=== PATIENT | female | born 1955 | race Caucasian/White ===

== ENCOUNTER 2020-07-17 18:32 | Emergency (ER) | payer OTHER ==
[~2020-07-17] VITALS: Ht 177.8 cm; Wt 108.9 kg
[2020-07-17 18:35] VITALS: BP 179/81
--- NOTE | 2020-07-17 19:04 | NUR ---
PT AMBULATED TO BED 09.
[2020-07-17] MEDS ORDERED: LIDOCAINE/EPI 1% 1:100000 20 ML VIAL INJ ONE (19:05)
--- NOTE | 2020-07-17 19:10 | NUR ---
65 YR OLD FEMALE PRESENTED TO THE ER WITH CC OF ABCESS TO RIGHT INNER THIGH. PT IS AOX4. PT STATES ABCESS STARTED 2 DAYS AGO WITH SLIGHT PINK/YELLOW DRAINAGE. PT STATES 8/10 SHARP-NONRADIATING PAIN TO ABCESS. PT DENIES OTHER MEDICAL COMPLAINTS. BED LOCKED IN LOWEST POSITION WITH 1 SIDE RAIL UP. HISTORY- DM ALLERGIES- NONE
[2020-07-17] MEDS ORDERED: LIDOCAINE 2% 1000 MG/50 ML VIAL INJ ONE ×2 (19:25→19:30)
--- NOTE | 2020-07-17 19:30 | NUR ---
ERMD AT BEDSIDE FOR MEDICAL EVALUATION.
--- NOTE | 2020-07-17 19:42 | NUR ---
GYNECOLOGICAL ASSISTANT AT BEDSIDE.
[2020-07-17 19:53] LABS: BASOPHILS # (AUTO) 0.1 K/uL (0.00-0.22); BASOPHILS % (AUTO) 0.8 % (0.0-2.0); EOSINOPHILS # (AUTO) 0.2 K/uL (0-0.4); EOSINOPHILS % (AUTO) 2.4 % (0.0-4.0); HEMATOCRIT 38.6 % (36-48); HEMOGLOBIN 13.2 g/dL (12.0-16.0); LYMPHOCYTES # (AUTO) 1.4 K/uL (2.5-16.5); LYMPHOCYTES % (AUTO) 16.3 % (20.5-51.1); MEAN CORPUSCULAR HEMOGLOBIN 29 pg (27-31); MEAN CORPUSCULAR HGB CONC 34 g/dL (33-37); MEAN CORPUSCULAR VOLUME 83.6 fL (80-94); MONOCYTES # (AUTO) 0.8 K/uL (0.8-1.0); MONOCYTES % (AUTO) 9.4 % (1.7-9.3); NEUTROPHILS # (AUTO) 6.2 K/uL (1.8-7.7); NEUTROPHILS % (AUTO) 71.1 % (42.2-75.2); PLATELET COUNT (AUTO) 252 K/uL (140-450); RED BLOOD CELL COUNT(AUTO) 4.62 MIL/uL (4.20-5.40); WHITE BLOOD COUNT (AUTO) 8.7 K/uL (4.8-10.8)
[2020-07-17 19:59] LABS: ANION GAP 11.3 (8-16); CARBON DIOXIDE 28.8 mmol/L (21-32); CREATININE 0.9 mg/dL (0.6-1.3); POTASSIUM 4.1 mmol/L (3.5-5.1)
[2020-07-17] MEDS ORDERED: CEPH500C16 PO (20:09)
[2020-07-17] MEDS ORDERED: SULFAMETH/TRIMETH DS 800/160MG 1 TAB PO STA (20:09)
[2020-07-17] MEDS ORDERED: cephALEXin 500 MG CAP PO STA (20:09)
[2020-07-17] MEDS ORDERED: SULFAMETH/TRIMETH DS 800/160MG 1 TAB PO ONE (20:15)
[2020-07-17] MEDS ORDERED: cephALEXin 500 MG CAP PO ONE (20:15)
[2020-07-17 20:33] VITALS: BP 179/81
== END 2020-07-17 20:33 | disposition home or self-care (01) ==
LOC: MED 18:32
DX: L02.415 Cutaneous abscess of right lower limb (principal); E11.9 Type 2 diabetes mellitus without complications
CPT/HCPCS: 10060; 36415; 80048; 85025; 99283; J2001

== ENCOUNTER 2020-07-19 19:01 | Emergency (ER) | payer OTHER ==
[~2020-07-19] VITALS: Ht 177.8 cm; Wt 108.9 kg
[~2020-07-19 19:01] MED LIST: CEPH500C16 PO
[2020-07-19 19:39] VITALS: BP 150/77
--- NOTE | 2020-07-19 19:39 | NUR ---
TO LOBBY A/W BED AMBULATORY
--- NOTE | 2020-07-19 19:47 | NUR ---
PT TAKEN TO BED 1
--- NOTE | 2020-07-19 20:13 | NUR ---
PT REQUESTING DR REN FOR WORK. WILL INFORM ERMD.
--- NOTE | 2020-07-19 20:15 | NUR ---
65 Y/O F BIB SELF FROM HOME, PATIENT PRESENTS TO ED WITH WOUND ON R UPPER THIGH NEAR PERNIEAL AREA THAT SHE NOTICED ON 07/13/20. PT STATES WOUND GOT MORE PAINFUL AND BIGGER ON 07/16/20, BLEEDING AND YELLOW DISCHARGE PRESENT AT SITE. DENIES N/V/D; SKIN IS PINK/WARM/DRY; AAOX4 WITH EVEN AND STEADY GAIT; LUNGS CLEAR BL; HR EVEN AND REGULAR; PT DENIES ANY FEVER, CP, SOB, OR COUGH AT THIS TIME; PATIENT STATES PAIN OF 10/10 ACHING AT THIS TIME; VSS; PATIENT POSITIONED FOR COMFORT; HOB ELEVATED; BEDRAILS UP X2; BED DOWN. ER MD MADE AWARE OF PT STATUS. NKA. PMH: DM2, HTN.
[2020-07-19] MEDS ORDERED: SULF-58 PO (20:51)
[2020-07-19 21:14] VITALS: BP 150/77
== END 2020-07-19 20:40 | disposition home or self-care (01) ==
LOC: MED 19:01
DX: L02.415 Cutaneous abscess of right lower limb (principal); E11.9 Type 2 diabetes mellitus without complications; Z79.899 Other long term (current) drug therapy
CPT/HCPCS: 99283

== ENCOUNTER 2020-07-22 12:12 | Emergency (ER) | payer OTHER ==
[~2020-07-22] VITALS: Ht 177.8 cm; Wt 108.9 kg
[~2020-07-22 12:12] MED LIST changes: +SULF-58 PO
[2020-07-22 12:18] VITALS: BP 152/68
[2020-07-22] MEDS ORDERED: HYDROcodone/APAP 5/325 MG 1 TAB TAB PO ONE (13:20)
[2020-07-22] MEDS ORDERED: BACITRACIN OINT 500 UNITS/GM PKT TP ONE (13:20)
[2020-07-22] MEDS ORDERED: NYST1CRE8 TP (13:33)
[2020-07-22] MEDS ORDERED: ACET-9527 PO (13:33)
[2020-07-22 14:10] VITALS: BP 125/67
== END 2020-07-22 14:10 | disposition home or self-care (01) ==
LOC: MED 12:12
DX: L02.214 Cutaneous abscess of groin (principal); L30.4 Erythema intertrigo; E11.9 Type 2 diabetes mellitus without complications; Z48.00 Encounter for change or removal of nonsurgical wound dressing
CPT/HCPCS: 99283